=== PATIENT | male | born 1940 | race Caucasian/White ===

== ENCOUNTER 2016-08-09 20:01 | Emergency (ER) | payer OTHER ==
[2016-08-09 20:07] VITALS: BP 139/76; PULSE 81; TEMP 97.9; BMI 28.4
--- NOTE | 2016-08-09 21:26 | PDOC ---
History of Present Illness - History of Present Illness Initial Comments: 08/09/16 21:28 The patient is a 76 year old male, with a significant past medical history of CAD s/p triple bypass (taking daily aspirin), who presents to the emergency department with increasing pain and swelling to his left foot for 2 days. He states the pain is localized to the knuckle of the left big toe. He states at the onset of his symptoms on Sunday, the pain was felt as a slight intermittent twinge to the left big toe. He reports today the pain today is localized to the left foot near his big toe and exacerbated with weight bearing. He reports noticing an increase in swelling since the initial onset of symptoms. He denies chest pain, shortness of breath, headache and dizziness. He denies fever, chills, nausea, vomit, diarrhea and constipation. He denies dysuria, frequency, urgency and hematuria. Allergies: NKDA Past surgical history: cervical disc removal Social history: He reports occasional alcohol consumption. denies illicit drug use. <Kate Keller - Last Filed: 08/09/16 21:28> <Ghazal Torrez - Last Filed: 08/10/16 05:36> - General Chief Complaint: Wound Stated Complaint: LEFT FOOT SWELLING/REDNESS Time Seen by Provider: 08/09/16 20:03 Past History <Kate Keller - Last Filed: 08/09/16 21:28> - Past Medical History Cardiac Disorders: Yes HTN: Yes Hypercholesterolemia: Yes - Surgical History Cardiac Surgery: Yes (TRIPLE BYPASS) - Immunization History Immunization Up to Date: Yes - Psycho/Social/Smoking Cessation Hx Anxiety: No Suicidal Ideation: No Smoking History: Never smoked Have you smoked in the past 12 months: No Information on smoking cessation initiated: No Hx Alcohol Use: Yes (OCCASIONAL) Drug/Substance Use Hx: No Substance Use Type: None <Ghazal Torrez - Last Filed: 08/10/16 05:36> - Past Medical History Allergies/Adverse Reactions: Allergies Allergy/AdvReac Type Severity Reaction Status Date / Time No Known Allergies Allergy Verified 08/09/16 20:03 Home Medications: Ambulatory Orders Aspirin [ASA -] 325 mg PO HS 11/04/14 Atorvastatin Ca [Lipitor -] 20 mg PO HS 11/04/14 Metoprolol Succinate [Toprol Xl -] 100 mg PO DAILY 11/04/14 Ramipril 5 mg PO DAILY 11/04/14 Indomethacin [Indocin -] 50 mg PO TID PRN #21 capsule 08/09/16 Review of Systems - Review of Systems Able to Perform ROS?: Yes Comments:: 08/09/16 21:30 CONSTITUTIONAL: Absent: fever, chills, diaphoresis, generalized weakness, malaise, loss of appetite HEENT: Absent: rhinorrhea, nasal congestion, throat pain, throat swelling, difficulty swallowing,mouth swelling, ear pain, eye pain, visual Changes CARDIOVASCULAR: Absent: chest pain, syncope, palpitations, irregular heart rate, lightheadedness , peripheral edema RESPIRATORY: Absent: cough, shortness of breath, dyspnea with exertion, orthopnea, wheezing, stridor, hemoptysis GASTROINTESTINAL: Absent: abdominal pain, abdominal distension, nausea, vomiting, diarrhea, constipation, melena, hematochezia GENITOURINARY: Absent: dysuria, frequency, urgency, hesitancy, hematuria, flank pain, genital pain MUSCULOSKELETAL: (+) Left foot pain and swelling. Absent: myalgia SKIN: Absent: rash, itching, pallor HEMATOLOGIC/IMMUNOLOGIC: Absent: easy bleeding, easy bruising, lymphadenopathy, frequent infections ENDOCRINE: Absent: unexplained weight gain, unexplained weight loss, heat intolerance, cold intolerance NEUROLOGIC: Absent: headache, focal weakness or paresthesias, dizziness, unsteady gait, seizure, mental status changes, bladder or bowel incontinence PSYCHIATRIC: Absent: anxiety, depression, suicidal or homicidal ideation, hallucinations. <Kate Keller - Last Filed: 08/09/16 21:28> *Physical Exam - Vital Signs Last Vital Signs Temp Pulse Resp BP Pulse Ox 97.9 F 81 18 139/76 97 08/09/16 20:04 08/09/16 20:04 08/09/16 20:04 08/09/16 20:04 08/09/16 20:04 - Physical Exam Comments: 08/09/16 21:31 GENERAL: The patient is awake, alert, and fully oriented, in no acute distress. HEAD: Normal with no signs of trauma. EYES: Pupils equal, round and reactive to light, extraocular movements intact, sclera anicteric, conjunctiva clear with no pallor. ENT: Ears normal, nares patent, oropharynx clear without exudates. Moist mucous membranes. NECK: Normal range of motion, supple without lymphadenopathy, JVD, or masses. LUNGS: Breath sounds equal, clear to auscultation bilaterally. No wheeze/ crackles. HEART: Regular rate and rhythm, normal S1 and S2 without murmur or rub. ABDOMEN: Soft/nontender/nondistended. BS wnl. No guarding or rebound. No palpable masses. No hepatosplenomegaly. EXTREMITIES: (+) Left forefoot with erythema and mild tenderness of first MTP joint. No bony deformities. strongly palpable dorsalis pedis pulse. foot is warm and dry with Normal range of motion, No clubbing or cyanosis. No cords. NEUROLOGICAL: Cranial nerves II through XII grossly intact. Normal speech, normal gait. PSYCH: Normal mood, normal affect. SKIN: Warm, Dry, normal turgor, no rashes or lesions noted. <Kate Keller - Last Filed: 08/09/16 21:28> - Vital Signs Last Vital Signs Temp Pulse Resp BP Pulse Ox 97.9 F 81 18 139/76 97 08/09/16 20:04 08/09/16 20:04 08/09/16 20:04 08/09/16 20:04 08/09/16 20:04 <Ghazal Torrez - Last Filed: 08/10/16 05:36> ED Treatment Course - LABORATORY CBC & Chemistry Diagram: 08/09/16 21:25 08/09/16 21:25 <Ghazal Torrez - Last Filed: 08/10/16 05:36> Medical Decision Making - Medical Decision Making Documentation has been prepared under my direction and personally reviewed by me in its entirety. I attest that this documented accurately reflects all work, treatment, procedures and medical decision making performed by me. As noted above, this 76-year-old man presents with a few day history of progressive pain/swelling/erythema of the first MTP joint of the left foot. No previous history of gout; no family history of gout. No recent dietary indiscretion or excessive consumption of alcohol. see just no fever/chills or any other evidence of infection. Exam as noted. Left foot x-ray shows no evidence of fracture/dislocation or other abnormality Laboratory evaluation notable for uric acid of 8.8. No significant other abnormality. Clinical presentation most consistent with acute gout. Patient given indomethacin 50 mg by mouth. Prescription for indomethacin 50 mg 3 times a day as needed for pain and inflammation will be prescribed for the patient. He meanwhile should elevate his foot as much as possible; he should plan on following up with his general medical doctor within the next few days. He should return to the emergency room if he has persistent <Ghazal Torrez - Last Filed: 08/10/16 05:36> *DC/Admit/Observation/Transfer - Attestations Scribe Attestion: 08/09/16 21:44 Documentation prepared by Kate Keller, acting as medical secretary teacher for Ghazal Torrez MD <Kate Keller - Last Filed: 08/09/16 21:28> <Ghazal Torrez - Last Filed: 08/10/16 05:36> Diagnosis at time of Disposition: Acute gout Qualifiers: Gout site: foot Gout etiology: unspecified cause Laterality: left Qualified Code(s): M10.9 - Gout, unspecified - Discharge Dispostion Disposition: HOME Condition at time of disposition: Stable - Prescriptions Prescriptions: Indomethacin [Indocin -] 50 mg PO TID PRN #21 capsule PRN Reason: Pain - Patient Instructions Printed Discharge Instructions: Gout, Low-Purine Diet Additional Instructions: indomethacin 50 mg 3 times a day as needed for foot pain drink plenty of water/elevate foot low purine diet followup with your doctor within 5 days return to ER if pain/swelling becomes more severe
[2016-08-09 21:46] LABS: BASOPHIL 0.8 % (0-2.0); EOSINOPHIL 1.7 % (0-4.5); MCH 28.1 pg (25.7-33.7); MEAN CELL VOLUME 85.1 fl (80-96); MEAN PLT VOLUME 8.5 fl (7.5-11.1); NEUTROPHILS 65.1 % (42.8-82.8); PLATELET COUNT 151 K/MM3 (134-434); RDW 14.3 % (11.9-15.9); WHITE BLOOD COUNT 6.9 K/mm3 (4.0-10.0)
[2016-08-09 21:53] LABS: ALBUMIN 3.8 g/dl (3.5-5.0); ALK PHOS 50 U/L (32-92); ANION GAP 6 (8-16); BILIRUBIN,TOTAL 0.7 mg/dl (0.2-1.0); CO2 23 mmol/L (22-28); CREATININE 1.3 mg/dl (0.6-1.3); GLUCOSE,RANDOM 96 mg/dl (74-106); SGOT/AST 20 U/L (10-42); SGPT/ALT 21 U/L (10-40); TOT PROT 6.6 g/dl (6.4-8.3); URIC ACID 8.8 mg/dl (2.6-7.2)
[2016-08-09] MEDS ORDERED: INDOMETHACIN 25 MG CAPSULE ONE (22:25)
== END 2016-08-09 22:35 | disposition home or self-care (01) ==
LOC: FER 20:01
DX: M10.9 Gout, unspecified (principal); I10 Essential (primary) hypertension; E78.00 Pure hypercholesterolemia, unspecified; Z95.1 Presence of aortocoronary bypass graft
CPT/HCPCS: 36415; 73630-TC-LT; 80053; 84550; 85025; 99282-25